=== PATIENT | female | born 1955 ===

== ENCOUNTER 2017-08-07 02:30 | Emergency (ER) | payer BC, OTHER ==
[2017-08-07 02:49] VITALS: RESP 16; TEMP 98
[2017-08-07] MEDS ORDERED: Sodium Chloride 0.9% 1,000 ML IV ONE (02:51)
[2017-08-07] MEDS ORDERED: Sodium Chloride 0.9% 1,000 ML ONE (02:57)
[2017-08-07 03:11] LABS: BASO # 0.1 K/uL (0.0-0.2); EOS # 0.3 K/uL (0.0-0.7); EOS % 5.7 % (0.0-4.0); HEMATOCRIT 44.9 % (34.0-47.0); LYMPH # 1.7 K/uL (1.0-4.3); LYMPH % 28.8 % (20.0-40.0); MEAN CELL VOLUME 88.5 fL (81.0-99.0); MEAN CORPUSCULAR HEMOGLOBIN 29.9 pg (27.0-31.0); MEAN CORPUSCULAR HGB CONC 33.7 g/dL (33.0-37.0); MEAN PLATELET VOLUME 9.8 fL (7.2-11.7); MONO # 0.7 K/uL (0.0-0.8); MONO % 12.3 % (0.0-10.0); NRBC % 0.1 % (0.0-2.0); RED CELL DISTRIBUTION WIDTH 14.2 % (11.5-14.5)
[2017-08-07 03:22] LABS: ALB/GLOB RATIO 0.9 (1.0-2.1); ALKALINE PHOSPHATASE 86 U/L (38-126); ALT/SGPT 49 U/L (9-52); AST/SGOT 34 U/L (14-36); BILIRUBIN,TOTAL 1.3 mg/dL (0.2-1.3); BLOOD UREA NITROGEN 15 mg/dL (7-17); CALCIUM 8.7 mg/dl (8.6-10.4); CARBON DIOXIDE 23 mmol/L (22-30); CHLORIDE 105 mmol/L (98-107); GFR AFRICAN-AMERICAN > 60; GLUCOSE,RANDOM 100 mg/dL (65-105); POTASSIUM 3.3 mmol/L (3.6-5.2); SODIUM 136 mmol/L (132-148); TOTAL PROTEIN 7.9 g/dL (6.3-8.3)
[2017-08-07 04:06] VITALS: O2SAT 99
--- NOTE | 2017-08-07 04:14 | C.PDOC ---
History Of Present Illness 62 y/o female c/o pain to the anterior chest wall and cough more so tonight. Patient denies SOB, palpitation, abdominal pain, nausea, or vomiting. No rash. Time Seen by Provider: 08/07/17 03:19 Chief Complaint (Nursing): Palpitations History Per: Patient History/Exam Limitations: no limitations Onset/Duration Of Symptoms: Hrs Current Symptoms Are (Timing): Still Present Severity: Mild Quality: "Pain" Additional History Per: Patient Past Medical History Reviewed: Historical Data, Nursing Documentation, Vital Signs Vital Signs: Last Vital Signs Temp 98 F 08/07/17 04:05 Pulse 73 08/07/17 04:05 Resp 16 08/07/17 04:05 BP 157/78 H 08/07/17 04:05 Pulse Ox 99 08/07/17 06:08 - Medical History PMH: Depression, HTN, Hypothyroidism Surgical History: Cholecystectomy Family History: States: Unknown Family Hx - Social History Hx Tobacco Use: No Hx Alcohol Use: No Hx Substance Use: No - Immunization History Hx Tetanus Toxoid Vaccination: No Hx Influenza Vaccination: Yes Hx Pneumococcal Vaccination: No Review Of Systems Except As Marked, All Systems Reviewed And Found Negative. Cardiovascular: Positive for: Chest Pain. Negative for: Palpitations Respiratory: Positive for: Cough. Negative for: Shortness of Breath Gastrointestinal: Negative for: Nausea, Vomiting, Abdominal Pain Skin: Negative for: Rash Physical Exam - Physical Exam Appears: Non-toxic, In Acute Distress (Mild distress due to pain) Skin: Warm, Dry, No Rash Head: Atraumatic, Normacephalic Oral Mucosa: Moist Chest: Symmetrical, Tenderness (Substernal area, anteriorly) Cardiovascular: Rhythm Regular, No Murmur Respiratory: Rales (occasional rales to the right lower lung areqa), No Rhonchi , No Wheezing Gastrointestinal/Abdominal: Soft, No Tenderness Neurological/Psych: Oriented x3 ED Course And Treatment - Laboratory Results Result Diagrams: 08/07/17 03:08 08/07/17 03:08 ECG: Interpreted By Me, Viewed By Me ECG Rhythm: Sinus Rhythm ECG Interpretation: Normal, No Acute Changes Interpretation Of ECG: NSR. normal tracings. Rate From EC O2 Sat by Pulse Oximetry: 99 Pulse Ox Interpretation: Normal - Radiology CXR: Interpreted by Me, Viewed By Me CXR Interpretation: Yes: No Acute Disease, Other (Inc. bronchovascular markings) . No: Infiltrates Medical Decision Making Medical Decision Making: Plans: * CT Angio chest * EKG * CXR * Toradol * IV fluids Dr. Marcel watt was notified about the patient's CT and notified that the Splenic artery aneurysm was already seen before. Dr. Watt instructed the patient to call his office this morning. Disposition Discussed With : Meek Watt Doctor Will See Patient In The: Office - Disposition Referrals: Eleazar Stockton Jr., MD [Staff Provider] - Disposition: HOME/ ROUTINE Disposition Time: 06:15 Condition: STABLE Instructions: Chest Pain (DC) Forms: [employer] (Tuvaluan) Print Language: SLOVENIAN - POA Present On Arrival: None - Clinical Impression Clinical Impression: Chest pain in adult - Scribe Statement The provider has reviewed the documentation as recorded by the Scribe Provider Attestation: Dinora wilson All medical record entries made by the Scribe were at my direction and personally dictated by me. I have reviewed the chart and agree that the record accurately reflects my personal performance of the history, physical exam, medical decision making, and the department course for this patient. I have also personally directed, reviewed, and agree with the discharge instructions and disposition.
[2017-08-07] MEDS ORDERED: Iodixanol 320 MG/ML 100 ML BOTTLE IV ONE (04:25)
[2017-08-07] MEDS ORDERED: Potassium Chloride 20 mEq ER Tab PO STA (04:47)
[2017-08-07] MEDS ORDERED: Potassium Chloride 20 mEq ER Tab PO ONE (04:58)
--- NOTE | 2017-08-07 05:51 | CT ---
EXAM: CT Angiography Chest With Intravenous Contrast EXAM DATE/TIME: 08/07/2017 4:15 AM CLINICAL HISTORY: 62 years old, female; Pain; Chest pain; Patient HX: High d -dimmer TECHNIQUE: Axial computed tomographic angiography images of the chest with intravenous contrast using pulmonary embolism protocol. All CT scans at this facility use one or more dose reduction techniques, viz.: automated exposure control; ma/kV adjustment per patient size (including targeted exams where dose is matched to indication; i.e. head); or iterative reconstruction technique. MIP reconstructed images were created and reviewed. Coronal and sagittal reformatted images were created and reviewed. CONTRAST: 100 mL of visipaque 320 administered intravenously. COMPARISON: Report from a prior CT chest of 12/05/2016. FINDINGS: PULMONARY ARTERIES: Contrast opacification of the pulmonary arteries is adequate, and there are no filling defects seen to suggest pulmonary embolism. AORTA: No evidence of aortic dissection. OTHER ARTERIES: Splenic artery aneurysm is seen, in the upper abdomen just to the left of midline, image 67/series 601, measuring 1.7 cm maximally. PORTAL VEINS: Large collateral vessel is seen in the upper abdomen, which connects to the portal vein. This could be a sign of portal hypertension. Recommend clinical correlation. LUNGS: Tiny calcified granulomas in the left lung. No evidence of significant focal consolidation/infiltrate in the lungs. No evidence of diffuse pulmonary vascular congestion. PLEURAL SPACE: No pneumothorax or pleural effusions seen. HEART: Heart appears mildly enlarged. No evidence of significant pericardial effusion. BONES/JOINTS: Multilevel degenerative changes of the spine noted. No acute fractures or other acute bony abnormality visualized. SOFT TISSUES: No acute abnormality of the visualized soft tissues seen. LYMPH NODES: No evidence of diffuse lymphadenopathy. LIVER: 4 cm low density liver lesion, most likely a cyst. GALLBLADDER AND BILE DUCTS: Numerous surgical clips in the right abdomen, which may be related to prior cholecystectomy. IMPRESSION: - No evidence of pulmonary embolism or other significant acute abnormality in the chest. - Mild cardiomegaly. - Incidental splenic artery aneurysm. - Findings which could be secondary to underlying portal hypertension. - See above for remaining findings.
[2017-08-07 06:23] VITALS: BP 150/70; PULSE 72
--- NOTE | 2017-08-07 08:48 | RAD ---
HISTORY: chest pain COMPARISON: 07/09/2016 TECHNIQUE: Chest PA and lateral FINDINGS: LUNGS: Mild venous congestion. Minimal biapical pleural thickening. PLEURA: No significant pleural effusion identified. No pneumothorax apparent. CARDIOVASCULAR: Normal. OSSEOUS STRUCTURES: Degenerative changes in the spine. VISUALIZED UPPER ABDOMEN: Surgical clips in the right upper abdomen. OTHER FINDINGS: None. IMPRESSION: Mild venous congestion. Minimal biapical pleural thickening.
--- NOTE | 2017-08-07 17:24 | CARD ---
APPROVED REPORT EKG Measurement Heart [id number] <Conclusion> Normal sinus rhythm Normal ECG
== END 2017-08-07 06:22 | disposition home or self-care (01) ==
LOC: C.ER 02:30
DX: R07.89 Other chest pain (principal); E87.6 Hypokalemia
CPT/HCPCS: 71020; 71275; 80053; 83880; 84484; 85025; 85378; 87040; 93005; 96374; 99285; J1885; J7040; Q9967